=== PATIENT | male | born 1985 | race Caucasian/White ===

== ENCOUNTER 2019-12-13 10:45 | Outpatient (CLI) | payer SELFPAY ==
--- NOTE | 2019-12-13 10:55 | MR_ITS ---
WS: [id number] MRI LUMBAR SPINE NONCONTRAST HISTORY: LOW BACK PAIN COMPARISON: None available. TECHNIQUE: Sagittal and axial multisequence imaging is submitted. Mild straightening of the normal lumbar lordosis. Disc spaces and vertebral body heights are maintain ed. No marrow edema or fracture. Thecal sac at the L4-5 and L5-S1 small caliber. Disc spaces and vertebral body heights are well-preserved. Conus terminates normally at L1. L1-L2: Normal. L2-L3: Mild facet joint arthropathy. Foramen are mildly narrowed. L3-L4: Mild ligamentum flavum hypertrophy and facet arthropathy. Bilateral foramina are mildly narrow ed. Very minimal encroachment upon the subarticular recesses, LEFT greater than RIGHT. L4-L5: Mild osteophytic ridging and mild facet arthropathy. Mild subarticular recess and foraminal na rrowing. L5-S1: Mild disc bulging and facet arthropathy. Mild bilateral foraminal narrowing. Mild encroachment upon the subarticular recesses, RIGHT greater than LEFT. Very tiny central disc protrusion is likely . Paraspinal soft tissues are normal. MR/MR lumbar spine wo con* [id number] IMPRESSION: 1. 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 At t his time there is no significant stenosis. Most significant narrowing involves the foramina at L4-5 and L5-S1 which is only mild. 2. No fracture or significant disc desiccation.
--- NOTE | 2019-12-13 11:24 | XR_ITS ---
WS: [id number] LATERAL LUMBAR SPINE: 3 view. Lateral radiographs are performed in upright neutral, flexion and extension to the patient's toleranc e. HISTORY: LOW BACK PAIN COMPARISON: None available. Normal lumbar alignment. No fractures. Disc spaces are well-maintained. With flexion and extension th ere is no instability. XR/XR lumbar spine f/e only [id number] IMPRESSION: No lumbar spine instability.
== END 2019-12-13 10:46 | disposition home or self-care (01) ==
LOC: RADWPI 10:50
PROVIDERS: Visit Provider Nurse Practitioner
DX: M48.07 Spinal stenosis, lumbosacral region (principal); M48.061 Spinal stenosis, lumbar region without neurogenic claudication
CPT/HCPCS: 72120; 72148

== ENCOUNTER 2023-02-21 13:06 | Emergency (ER) | payer SELFPAY ==
[2023-02-21 13:16] VITALS: BP 123/76; PULSE 85; RESP 14; TEMP 36.6; O2SAT 97
--- NOTE | 2023-02-21 13:25 | ED_ITS ---
HPI - Fall General: Chief Complaint: Extremity Injury, Lower Stated Complaint: Right Ankle and arm injury Time Seen by Provider: 02/21/23 13:23 Source: patient Mode of arrival: wheelchair Limitations: no limitations History of Present Illness: Patient is a 37-year-old male who presents to ED today along with his for evaluation of a right ankle and right wrist injury that he sustained just prior to arrival after he accidentally stepped into a hole and twisted the right ankle. He states when he went to fall he then fell on his outstretched hand and injured his right wrist. He has no other complaints or injuries at this time. complaint: fall Onset (ago): hour(s) Fall from: standing Fall witnessed: no Place fall occurred: home Loss of consciousness: None Prolonged down time: no Symptoms prior to fall: none Context: tripped/slipped Location of injury - extremities: Right: forearm (wrist) and ankle Severity: moderate Associated symptoms-after fall: Reports no associated symptoms; Denies abdominal pain, chest pain, headache(s), hematuria, lightheadedness or neck pain Review of Systems Eyes: Denies: change in vision, blurry vision, photophobia, eye discharge, floaters or seeing flashes ENMT: Denies: throat pain, odynophagia, ear or mastoid pain, ear discharge, nasal discharge, epistaxis or sinus pain Card: Denies: chest pain, palpitations, lightheadedness, syncope or pre- syncope Resp: Denies: dyspnea or pain on inspiration GI: Denies: abdominal pain : Denies: flank pain or hematuria Musc: Reports: joint pain (R wrist/ankle) and joint swelling (R ankle); Denies: neck pain, back pain, extremity pain, extremity swelling or joint redness Neuro: Denies: headache(s), numbness in extremities, weakness in extremities, sensory changes or dizziness [facility] ED PFSH: Social History Smoking and tobacco status: current every day smoker Physical Exam Const: COMMON NORMALS: no acute distress, average body habitus, patient oriented x3, no limitations, alert and well nourished HENMT: COMMON NORMALS: normocephalic and atraumatic HEAD & SCALP: normal to inspection, normocephalic and atraumatic Neck/C-Spine: COMMON NORMALS: full ROM CERVICAL SPINE: No Cervical spine tenderness Resp: COMMON NORMALS: normal respiratory effort Back/Pelvis: COMMON NORMALS: thoracic and lumbar spine normal to inspection and no thoracic nor lumbar tenderness Extremity: COMMON NORMALS: capillary refill normal GENERAL: Yes normal exam except as noted RIGHT UPPER EXTREMITY: Yes wrist (mild TTP w/o swelling or bony deformity) Right wrist: Yes ROM (normal) and Yes neurovascular exam (normal) RIGHT LOWER EXTREMITY: Yes foot & digits (swelling/tenderness to R lateral malleolus) Right ankle: Yes neurovascular exam (normal) Neuro: COMMON NORMALS: patient oriented x3, moves all extremities, no focal motor deficits and no sensory deficits noted SENSORIUM/ORIENTATION: Yes alert Course Vital Signs: Vital signs: Vital Signs Temperature 97.9 F 02/21/23 13:16 Pulse Rate 85 02/21/23 13:16 Respiratory Rate 14 02/21/23 13:16 Blood Pressure 123/76 02/21/23 13:16 Pulse Oximetry 97 02/21/23 13:16 Oxygen Delivery Me thod Room Air 02/21/23 13:16 MDM - Fall Medical Decision Making XR wrist negative. XR ankle personal interpretation shows an avulsion fracture off of his lateral malleolus. This is where patient is tender and swollen on clinical examination. He will be placed in a stirrup splint, given crutches, and recommend follow-up with orthopedics. Discharge Plan Discharge Patient Disposition: Home Clinical Impression: Avulsion fracture of lateral malleolus of right fibula Qualifiers: Encounter type: initial encounter Fracture type: closed Qualified Code(s): S82.61XA - Displaced fracture of lateral malleolus of right fibula, initial encounter for closed fracture Condition: Stable Prescriptions: No Action No Known Home Medications Discharge Orders: Discharge ED (Routine); Ordered 02/21/23 Ordered By: Bindu Duckworth Patient Instructions: Avulsion Fracture (ED), RICE Therapy Activity Restrictions/Additional Instructions: As we discussed case management should reach out to you shortly in regards to your orthopedic follow-up appointment. You may ice and elevate the extremity to help with swelling and discomfort. You may use Tylenol and/or Ibuprofen as needed for discomfort. Stand Alone Forms: Work/School Release Coding Level of Care Code ED Nailer Machine for Shereen Dickey
--- NOTE | 2023-02-21 13:40 | XRR_ITS ---
PROCEDURE INFORMATION: Exam: XR Right Wrist Exam date and time: 02/21/2023 2:16 PM Age: 37 years old Clinical indication: Injury or trauma; Fall; Blunt trauma (contusions or hematomas); Wrist; Right; Additional info: Fall/pain TECHNIQUE: Imaging protocol: Radiologic exam of the right wrist. Views: 3 or more views. COMPARISON: No relevant prior studies available. FINDINGS: Bones/joints: Osseous structures are intact. No fracture or malalignment. Visualized joint surfaces are preserved. Small carpal bone cysts within the lunate and hamate likely either degenerative or developmental in nature. Soft tissues: Unremarkable. XR/XR wrist RT min 3V* [id number] IMPRESSION: No acute bony abnormalities.
--- NOTE | 2023-02-21 13:40 | XRR_ITS ---
PROCEDURE INFORMATION: Exam: XR Right Ankle Exam date and time: 02/21/2023 2:14 PM Age: 37 years old Clinical indication: Injury or trauma; Fall; Blunt trauma; Ankle; Right; Additional info: Trauma/injury TECHNIQUE: Imaging protocol: Radiologic exam of the right ankle. Views: 3 or more views. COMPARISON: No relevant prior studies available. FINDINGS: Bones/joints: Osseous structures are intact. No fracture or malalignment. Joint surfaces preserved. Soft tissues: Soft tissue swelling lateral malleolus. XR/XR ankle RT min 3V* [id number] IMPRESSION: Soft tissue swelling lateral malleolus, otherwise negative exam.
--- NOTE | 2023-02-24 08:45 | DCPLANNER ---
Addendum entered by Michaelle Phelps 02/27/23 08:46: Patient had a follow up appointment scheduled with ortho - patient did attend appointment. Addendum entered by Michaelle Phelps 02/25/23 13:44: Patient has a follow up appointment scheduled for Friday, February 26, 2023 at 8:[address] Mcnamara at ortho. Original Note: compliance manager had message to schedule a follow up appointment for patient with ortho. compliance manager sent patients information to the front office staff at ortho. Patients information will be printed and reviewed. Clinic will call patient with appointment information.
--- NOTE | 2023-02-26 15:05 | DCPLANNER ---
microbiology laboratory manager called patient due to no primary care physician - patient declines at this time.
== END 2023-02-21 15:25 | disposition home or self-care (01) ==
PROVIDERS: Emergency Provider Physician Assistant
DX: S82.61XA Displaced fracture of lateral malleolus of right fibula, initial encounter for closed fracture (principal); F17.210 Nicotine dependence, cigarettes, uncomplicated; X50.1XXA Overexertion from prolonged static or awkward postures, initial encounter
CPT/HCPCS: 29515; 73110; 73610; 99283; E0114

== ENCOUNTER 2023-02-27 14:09 | Emergency (ER) | payer SELFPAY ==
[2023-02-27 14:24] VITALS: BP 106/75; PULSE 75; RESP 16; TEMP 36.4; O2SAT 98; BMI 23.8
--- NOTE | 2023-02-27 14:28 | XR_ITS ---
WS: [id number] Exam: XR foot RT min 3V* [id number] Date/Time of Exam: 02/27/2023 2:28 PM Reason For Exam: pain/injury Findings: The foot was examined in multiple views and reveals no fractures or displacements of bone. No bony a nomalies are noted. The bony elements are in adequate alignment. The joint spaces are smooth and eq uidistant. XR/XR foot RT min 3V* [id number] IMPRESSION: Negative right foot.
--- NOTE | 2023-02-27 14:39 | ED_ITS ---
HPI - Extremity Injury (Lower) General: Chief Complaint: Extremity Injury, Lower Stated Complaint: foot injury Time Seen by Provider: 02/27/23 14:35 Source: patient Mode of arrival: wheelchair Limitations: no limitations History of Present Illness: Patient is a 37-year-old male who presents to ED today along with his for evaluation of right foot pain/injury. I personally saw patient last week on 02/21 for evaluation of a right ankle injury that he sustained after twisting it after stepping into a hole. He was diagnosed with an avulsion fracture to his lateral malleolus. He admittedly had no foot pain at the time but states I did not tell you the whole story because I was hyped up on Mountain Dew and adrenaline . He is telling me now that he fell off a ladder and then landed into the hole. Patient followed up with Dr. Mcnamara yesterday in regards to the lateral malleolus fracture. Directions were for a compression sleeve to help with swelling, range of motion, and progressive weightbearing. Patient states he has been bearing full weight and working and believes this is what has aggravated his right foot as he has now noticed some bruising and swelling. complaint: foot injury Onset (ago): day(s) Review of Systems Musc: Reports: extremity pain (R foot) and extremity swelling (R foot) Neuro: Denies: numbness in extremities or sensory changes [facility] ED PFSH: Social History Smoking and tobacco status: current every day smoker Physical Exam Const: COMMON NORMALS: no acute distress, average body habitus, no limitati ons, healthy appearing, alert and well nourished Extremity: GENERAL: Yes normal exam except as noted RIGHT LOWER EXTREMITY: Yes foot & digits and Yes foot & digits OTHER: swelling to lateral malleolus seen on last visit is much improved-still mild bony tenderness here; he has swelling to dorsal R foot with some ecchymosis distally; NV intact; no bony deformities Neuro: COMMON NORMALS: moves all extremities, no focal motor deficits and no sensory deficits noted SENSORIUM/ORIENTATION: Yes alert Course Vital Signs: Vital signs: Vital Signs Temperature 97.5 F L 02/27/23 14:24 Pulse Rate 75 02/27/23 14:24 Respiratory Rate 16 02/27/23 14:24 Blood Pressure 106/75 04/27/23 14:24 Pulse Oximetry 98 02/27/23 14:24 MDM - Extremity Injury (Lower) Medical Decision Making XR R foot negative. Recommend continuing current plan for compression, ice, elevation, and progressive weightbearing. Patient verbalized instructions. Lab Data Radiology Impressions Foot X-Ray 02/27/23 14:28 IMPRESSION: Negative right foot. Discharge Plan Discharge Patient Disposition: Home Clinical Impression: Acute pain of right foot Condition: Stable Prescriptions: No Action No Known Home Medications Discharge Orders: Discharge ED (Routine); Ordered 02/27/23 Ordered By: Bindu Duckworth Coding Level of Care Code ED Resident Associate for Shereen Dickey
--- NOTE | 2023-02-28 13:32 | DCPLANNER ---
infrastructure project manager called patient due to no primary care physician - patient declines at this time
== END 2023-02-27 15:07 | disposition home or self-care (01) ==
PROVIDERS: Emergency Provider Physician Assistant
DX: M79.671 Pain in right foot (principal); F17.210 Nicotine dependence, cigarettes, uncomplicated
CPT/HCPCS: 73630; 99283

== ENCOUNTER 2025-03-24 22:04 | Emergency (ER) | payer MEDICAID, SELFPAY ==
[2025-03-24 22:07] VITALS: BP 120/80; PULSE 89; RESP 16; TEMP 36.6; O2SAT 94; BMI 21.7
== END 2025-03-25 00:09 | disposition left against medical advice (07) ==
PROVIDERS: Emergency Provider Family Medicine
DX: Z53.21 Procedure and treatment not carried out due to patient leaving prior to being seen by health care provider (principal)